=== PATIENT | female | born 1960 | race Caucasian/White ===

== ENCOUNTER 2017-11-15 10:02 | Outpatient (RCR) | payer BC | END 2017-11-26 | disposition home or self-care (01) | LOC: ONC 10:02 | PROVIDERS: ATTEND Radiology Radiation Oncology | DX: C44.629 Squamous cell carcinoma of skin of left upper limb, including shoulder (principal) | CPT/HCPCS: 99204 ==

== ENCOUNTER 2022-08-10 16:05 | Emergency (ER) | payer OTHER, BC ==
[~2022-08-10] VITALS: Ht 162 cm; Wt 61.0 kg
[2022-08-10] MEDS ORDERED: IBUP-1780 PO (16:23)
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
[2022-08-10 16:59] VITALS: BP 141/73
== END 2022-08-10 16:30 | disposition home or self-care (01) ==
LOC: EDUNIT# 16:05 → ER FS 16:08
DX: M54.2 Cervicalgia (principal); F17.210 Nicotine dependence, cigarettes, uncomplicated; Y04.8XXA Assault by other bodily force, initial encounter; Y92.59 Other trade areas as the place of occurrence of the external cause; Y99.0 Civilian activity done for income or pay
CPT/HCPCS: 99282

== ENCOUNTER 2022-12-28 11:46 | Emergency (ER) | payer BC, OTHER ==
[~2022-12-28] VITALS: Ht 162 cm; Wt 65.0 kg
[~2022-12-28 11:46] MED LIST: IBUP-1780 PO
[2022-12-28 11:56] VITALS: BP 147/80
[2022-12-28] MEDS ORDERED: FAMOTIDINE 20 MG TABLET PO STA (11:57)
[2022-12-28] MEDS ORDERED: LIDOCAINE 2% VISCOUS 15 ML UDC PO ONE (12:00)
[2022-12-28] MEDS ORDERED: ANTACID SUSPENSION 30 ML UDC PO ONE (12:00)
[2022-12-28] MEDS ORDERED: ASPIRIN 81 MG CHEWABLE TABLET PO ONE (12:00)
--- NOTE | 2022-12-28 12:01 | ED Cardiac General ---
History of Present Illness General Chief Complaint: Back Problems Stated Complaint: CHEST/BACK PAIN Source: patient Exam Limitations: no limitations History of Present Illness Date Seen by Provider: Dec 28, 2022 Time Seen by Provider: 11:47 Initial Comments 62-year-old female with no pertinent past medical history coming in due to lower scapular discomfort in the middle of her back radiating through to her chest. Started roughly 40 minutes prior to arrival and lasted roughly 40 minutes. It stopped when she arrived in the ER, and she is completely back to baseline at this time. She had pain like this similar a couple months ago which went away on its own, she never followed up for it. Denies any personal cardiac history, no prior history of DVT or PE, no recent surgery, no lower extremity swelling or pain, no shortness of breath, fever, cough, abdominal pain, nausea, vomiting, diarrhea, weakness, numbness, headache, or any other concerns. She takes no prescription medicines and has had no medicines today. She was wondering if it was something related to her stomach based on what she ate. Allergies and Home Medications Allergies Coded Allergies: Sulfa (Sulfonamide Antibiotics) (Verified Allergy, Unknown, 08/10/22) Patient Home Medication List Home Medication List Reviewed: Yes Ibuprofen (Ibuprofen) 800 Mg Tablet, 800 MG PO Q8H PRN for PAIN Prescribed by: WILTON GRANADOS on 08/10/22 4533 Review of Systems Review of Systems Constitutional: No fever EENTM: No Symptoms Reported Respiratory: No Symptoms Reported Cardiovascular: See HPI Gastrointestinal: No Symptoms Reported Genitourinary: No Symptoms Reported Musculoskeletal: see HPI Skin: no symptoms reported Psychiatric/Neurological: No Symptoms Reported Endocrine: No Symptoms Reported Hematologic/Lymphatic: No Symptoms Reported Past Zfqebaq-Svtgvh-Pwerqd Hx Patient Social History Tobacco Use?: Yes Tobacco type used: Cigarettes Substance use?: No Alcohol Use?: No Past Medical History Surgeries: No Physical Exam Vital Signs Vital Signs - First Documented 12/28/22 11:56 Pulse 92 Resp 18 B/P (MAP) 147/80 (102) Pulse Ox 97 O2 Delivery Room Air Capillary Refill : Height, Weight, BMI Height: '" Weight: lbs. oz. kg; 23.00 BMI Method: General Appearance: No Apparent Distress, WD/WN HEENT: PERRL/EOMI, Normal ENT Inspection, Pharynx Normal Neck: Full Range of Motion, Normal Inspection, Non Tender, Supple Respiratory: Chest Non Tender, Lungs Clear, Normal Breath Sounds, No Accessory Muscle Use, No Respiratory Distress Cardiovascular: Regular Rate, Rhythm, No Edema, Normal Peripheral Pulses Gastrointestinal: Normal Bowel Sounds, Non Tender, Soft; No Distended, No Guarding Extremity: Normal Capillary Refill, Normal Inspection, Normal Range of Motion, Non Tender, No Calf Tenderness, No Pedal Edema Neurologic/Psychiatric: Alert, No Motor/Sensory Deficits, Normal Mood/Affect Skin: Normal Color, Warm/Dry Progress/Results/Core Measures Results/Orders Lab Results Laboratory Tests Test 12/28/22 11:50 12/28/22 13:27 Range/Units White Blood Count 6.4 4.3-11.0 10^3/uL Red Blood Count 4.54 3.80-5.11 10^6/uL Hemoglobin 14.1 11.5-16.0 g/dL Hematocrit 42 35-52 % Mean Corpuscular Volume 91 80-99 fL Mean Corpuscular Hemoglobin 31 25-34 pg Mean Corpuscular Hemoglobin Concent 34 32-36 g/dL Red Cell Distribution Width 12.6 10.0-14.5 % Platelet Count 219 130-400 10^3/uL Mean Platelet Volume 10.3 9.0-12.2 fL Immature Granulocyte % (Auto) 0 % Neutrophils (%) (Auto) 68 42-75 % Lymphocytes (%) (Auto) 20 12-44 % Monocytes (%) (Auto) 7 0-12 % Eosinophils (%) (Auto) 4 0-10 % Basophils (%) (Auto) 1 0-10 % Neutrophils # (Auto) 4.4 1.8-7.8 10^3/uL Lymphocytes # (Auto) 1.3 1.0-4.0 10^3/uL Monocytes # (Auto) 0.5 0.0-1.0 10^3/uL Eosinophils # (Auto) 0.2 0.0-0.3 10^3/uL Basophils # (Auto) 0.1 0.0-0.1 10^3/uL Immature Granulocyte # (Auto) 0.0 0.0-0.1 10^3/uL Prothrombin Time 12.5 12.2-14.7 SEC INR Comment 0.9 0.8-1.4 Activated Partial Thromboplast Time 23 L 24-35 SEC Sodium Level 141 135-145 MMOL/L Potassium Level 3.8 3.6-5.0 MMOL/L Chloride Level 103 98-107 MMOL/L Carbon Dioxide Level 29 21-32 MMOL/L Anion Gap 9 5-14 MMOL/L Blood Urea Nitrogen 12 7-18 MG/DL Creatinine 0.71 0.60-1.30 MG/DL Estimat Glomerular Filtration Rate 97 BUN/Creatinine Ratio 17 Glucose Level 131 H 70-105 MG/DL Calcium Level 10.4 H 8.5-10.1 MG/DL Corrected Calcium 10.0 8.5-10.1 MG/DL Magnesium Level 2.2 1.6-2.4 MG/DL Total Bilirubin 0.5 0.1-1.0 MG/DL Aspartate Amino Transf (AST/SGOT) 30 5-34 U/L Alanine Aminotransferase (ALT/SGPT) 20 0-55 U/L Alkaline Phosphatase 110 40-136 U/L Troponin I < 0.30 < 0.30 <0.30 NG/ML Total Protein 6.9 6.4-8.2 GM/DL Albumin 4.5 3.2-4.5 GM/DL Lipase 23 8-78 U/L My Orders Orders - WILTON GRANADOS MD Cbc And Automated Diff (12/28/22 11:57) Magnesium (12/28/22 11:57) Chest 1 View Ap/Pa Only (12/28/22 11:57) Ekg Tracing (12/28/22 11:57) Comprehensive Metabolic Panel (12/28/22 11:57) Protime With Inr (12/28/22 11:57) Partial Thromboplastin Time (12/28/22 11:57) O2 (12/28/22 11:57) Monitor-Rhythm Ecg Trace Only (12/28/22 11:57) Aspirin Chewable Tablet (Aspirin Chewabl (12/28/22 12:00) Ed Iv/Invasive Line Start (12/28/22 11:57) Lipase (12/28/22 11:57) Troponin I Fs (12/28/22 11:57) Lidocaine 2% Viscous 15 Ml (Xylocaine Vi (12/28/22 12:00) Famotidine Tablet (Famotidine Tablet) (12/28/22 11:57) Antacid Suspension (Antacid Suspension (12/28/22 12:00) Troponin I Fs (12/28/22 13:30) Medications Given in ED Current Medications Medications Dose Ordered Sig/Jose Route Start Time Stop Time Status Last Admin Dose Admin Al Hydrox/Mg Hydrox/Simethicone 30 ml ONCE ONCE PO 12/28/22 12:00 12/28/22 12:01 DC 12/28/22 12:11 30 ML Aspirin 324 mg ONCE ONCE PO 12/28/22 12:00 12/28/22 12:01 DC 12/28/22 12:10 324 MG Vital Signs/I&O 12/28/22 11:56 Pulse 92 Resp 18 B/P (MAP) 147/80 (102) Pulse Ox 97 O2 Delivery Room Air Progress Progress Note : Progress Note 62-year-old female with above history coming in due to upper back and chest discomfort. ABCs were intact and vitals were stable on presentation. Physical exam reassuring including specifically a soft and nontender abdomen, nontender back or chest. EKG ordered and interpreted by me showing no acute ischemic changes. Chest x-ray ordered and interpreted by me showing no pneumothorax, no obvious pneumonia, normal cardiac silhouette. An IV was placed and basic labs were obtained were significant for normal white blood cell count, normal creatinine, normal lipase, and negative troponin x2 on repeat. She is a low risk for PE per [place] criteria and I think it would be highly unlikely given her clinical presentation. Additionally, she is completely pain-free. She did get aspirin and a GI cocktail on arrival. I believe she is stable for discharge with outpatient follow-up. She was sent home with strict return precautions. Given her age and the fact that she smokes, I will refer her to a director writing for further evaluation although I think ACS today is unlikely. Initial ECG Impression Date: Dec 28, 2022 Initial ECG Impression Time: 11:53 Initial ECG Rate: 82 Initial ECG Rhythm: Normal Sinus Comment Narrow QRS, normal axis, no significant ST changes or T wave abnormalities Diagnostic Imaging Diagonstic Imaging: Xray (chest) Comments [facility]. [place], [place] NAME: [facility] REC#: [id number] PT STATUS: REG ER : 1960 PHYSICIAN: WILTON GRANADOS MD ADMIT DATE: 12/28/22/ER FS Draft Date of Exam:12/28/22 CHEST 1 VIEW AP/PA ONLY EXAMINATION: Chest 1 view HISTORY: Chest pain. COMPARISON: None available. FINDINGS: The lung volumes are normal. No focal consolidation is seen. No large pleural effusion or pneumothorax is seen. The cardiomediastinal silhouette is normal in size and contour. No acute osseous abnormality is seen. IMPRESSION: 1. No acute pleuroparenchymal process. Dictated on workstation # [id number] Dict: 12/28/22 1214 Trans: 12/28/22 1215 [id number] [id number] Interpreted by: LISA MOONEY DO Electronically signed by: Departure Impression Primary Impression: Chest discomfort Additional Impression: Upper back pain Disposition: HOME, SELF-CARE Condition: Stable Departure-Patient Inst. Decision time for Depature: 14:05 Referrals: LORNA CORREA MD FACP [facility] AGNIESZKA MILLER MD (PCP/Family) Primary Care Physician Patient Instructions: Chest Pain (DC) Add. Discharge Instructions: It does not appear today like you are having a heart attack or anything life- threatening. It is possible this is coming from your stomach, esophagus, or just the muscles and connective tissue in general which can cause discomfort. Given your age and your history of smoking, we think it is still a good idea to follow-up with a director writing for a repeat evaluation. Dr. Correa is an option, and his number is in this paperwork. Work/School Note: Work Release Form Date Seen in the Emergency Department: Dec 28, 2022 Return to Work: Dec 29, 2022 Restrictions: No Restrictions WILTON GRANADOS MD Dec 28, 2022 12:01
[2022-12-28 12:08] LABS: BASOPHILS # (AUTO) 0.1 10^3/uL (0.0-0.1); BASOPHILS % (AUTO) 1 % (0-10); EOSINOPHILS # (AUTO) 0.2 10^3/uL (0.0-0.3); EOSINOPHILS % (AUTO) 4 % (0-10); HEMATOCRIT 42 % (35-52); HEMOGLOBIN 14.1 g/dL (11.5-16.0); LYMPHOCYTES # (AUTO) 1.3 10^3/uL (1.0-4.0); LYMPHOCYTES % (AUTO) 20 % (12-44); MEAN CORPUSCULAR HEMOGLOBIN 31 pg (25-34); MEAN CORPUSCULAR HGB CONC 34 g/dL (32-36); MEAN CORPUSCULAR VOLUME 91 fL (80-99); MEAN PLATELET VOLUME 10.3 fL (9.0-12.2); MONOCYTES # (AUTO) 0.5 10^3/uL (0.0-1.0); MONOCYTES % (AUTO) 7 % (0-12); NEUTROPHILS # (AUTO) 4.4 10^3/uL (1.8-7.8); NEUTROPHILS % (AUTO) 68 % (42-75); PLATELET COUNT 219 10^3/uL (130-400); WHITE BLOOD COUNT 6.4 10^3/uL (4.3-11.0)
--- NOTE | 2022-12-28 12:15 | Diagnostic Imaging Report ---
EXAMINATION: Chest 1 view HISTORY: Chest pain. COMPARISON: None available. FINDINGS: The lung volumes are normal. No focal consolidation is seen. No large pleural effusion or pneumothorax is seen. The cardiomediastinal silhouette is normal in size and contour. No acute osseous abnormality is seen. IMPRESSION: 1. No acute pleuroparenchymal process. Dictated by: Dictated on workstation # [id number]
[2022-12-28 12:17] LABS: INR 0.9 (0.8-1.4); PROTHROMBIN TIME PATIENT 12.5 SEC (12.2-14.7)
[2022-12-28 12:29] LABS: ALKALINE PHOSPHATASE 110 U/L (40-136); BILIRUBIN,TOTAL 0.5 MG/DL (0.1-1.0); BUN/CREATININE RATIO 17; CALCIUM 10.4 MG/DL (8.5-10.1); CARBON DIOXIDE 29 MMOL/L (21-32); CHLORIDE 103 MMOL/L (98-107); CREATININE SERUM 0.71 MG/DL (0.60-1.30); GFR ESTIMATED 97; GLUCOSE 131 MG/DL (70-105); MAGNESIUM 2.2 MG/DL (1.6-2.4); POTASSIUM 3.8 MMOL/L (3.6-5.0); SODIUM 141 MMOL/L (135-145)
[2022-12-28 12:30] LABS: ALANINE AMINOTRANSFERASE 20 U/L (0-55); ALBUMIN 4.5 GM/DL (3.2-4.5); LIPASE 23 U/L (8-78); TOTAL PROTEIN 6.9 GM/DL (6.4-8.2)
== END 2022-12-28 14:05 | disposition home or self-care (01) ==
LOC: EDUNIT# 11:46 → ER FS 11:48
DX: M54.6 Pain in thoracic spine (principal); R07.89 Other chest pain; F17.210 Nicotine dependence, cigarettes, uncomplicated
CPT/HCPCS: 36415; 71045; 80053; 83690; 83735; 84484; 85025; 85610; 85730; 93005; 93041